=== PATIENT | female | born 1945 | race Caucasian/White ===

== ENCOUNTER 2019-12-26 07:48 | Emergency (ER) | payer OTHER ==
[~2019-12-26] VITALS: Ht 157.5 cm; Wt 75.3 kg
[~2019-12-26 07:48] MED LIST: ASPIR 8181 MG PO; ATENOLOL25 MG PO; BRILINTA90 MG PO; CENTRUM SILVER1 EAC3 PO; CHOLESTYRAMINE L4 GM PO; CHROMIUM PO; CINNAMON500 MG PO; CLONAZEPAM0.5 MG PO; CLONIDINE HCL0.1 MG PO; DEXTROSE; DOXEPIN HCL10 MG PO; ETODOLAC500 MG PO; FAMOTIDINE20 MG PO; GLIMEPIRIDE4 MG PO; HUMALOG100 UNITS/ SQ; HYDRALAZINE HCL10 MG PO; IRON325 M1 PO; L-LYSINE500 M1 PO; LANTUS 3ML100 UNITS/ SQ; LASIX20 MG PO; LEVOTHYROXINE75 MCG PO; LOSARTAN POTASS25 MG PO; LOVASTATIN20 MG PO; LOVASTATIN40 MG PO; MAGNESIUM OXID400 MG PO; MAGNESIUM OXIDE PO; METFORMIN HCL1000 MG PO; METFORMIN HCL500 MG PO; METOPROLOL PO; METOPROLOL TART25 MG PO; METOPROLOL TART50 MG PO; MONTELUKAST SOD10 MG PO; MORPHINE; NAPROSYN500 MG PO; NEURONTIN100 MG PO; NITROGLYCERIN; NORVASC5 MG PO; NOVOLIN 70100 UNITS/ SQ; NOVOLOG100 UNITS/ SQ; OMEGA 3 6 9 PO; PEPCID20 MG PO; PLAVIX75 MG PO; REGLAN10 MG PO; SUCRALFATE1 G/10 ML NG; SYNTHROID75 MCG PO; TIZANIDINE HCL2 MG PO; TRAZODONE HCL50 MG PO; ULTRAM 50MG50 MG PO; VIT D PO; VITAMIN B COMP1 EAC1 PO; VITAMIN D35000 UNI1 PO; WOMEN'S DAILY1 EAC1 PO; biotin PO
--- OUTSIDE RECORDS SUMMARY | 2019-12-26 07:52 | XMS REPORT ---
Author Author [facility] Address Unknown Phone Unavailable Care Team Providers Care Cad Drafter Name Role Phone Unavailable Unavailable Payers Payer Name Policy Type Policy Number Effective Date Expiration Date Problems This patient has no known problems. Allergies, Adverse Reactions, Alerts Allergy Name Allergy Type Status Severity Reaction(s) Onset Date Inactive Date Treating Clinician Comments morphine DA Active U 2019-11-30 00:00:00 Penicillins DA Active [place] 2018-06-02 00:00:00 peanut FA Active [place] 2018-06-02 00:00:00 potassium DA Active [place] 2018-06-02 00:00:00 codeine DA Active 2018-06-02 00:00:00 adhesive tape DA Active [place] 2018-06-02 00:00:00 meperidine DA Active [place] 2018-06-02 00:00:00 BRONCHODILATORS DA Active 2018-06-02 00:00:00 Medications This patient has no known medications. Results Test Description Test Time Test Comments Text Results Atomic Results Result Comments GLUBED 2019-12-01 12:01:00 GLUBED (test code=GLUBED) 223 mg/dL 74-106 Performed by certified ruffling machine operator at [facility] [id number] 06:54:00* Test Item Value Reference Range Comments GLUBED (test code=GLUBED) 224 mg/dL 74-106 Performed by certified ruffling machine operator at [facility] [id number] 04:52:00* Test Item Value Reference Range Comments TROPONIN-I (test code=TROPI) <0.015 ng/mL 0-0.045 COMMENTS TO NEWS LIBRARIAN: COLLECT 3 HOURS AFTER PREVIOUS [id number] 01:45:00* Test Item Value Reference Range Comments TROPONIN-I (test code=TROPI) <0.015 ng/mL 0-0.045 COMMENTS TO NEWS LIBRARIAN: COLLECT 3 HOURS AFTER PREVIOUS [id number] 20:14:00* Test Item Value Reference Range Comments GLUBED (test code=GLUBED) 175 mg/dL 74-106 Performed by certified ruffling machine operator at [facility] - XR CHEST 1 [id number] 18:56:00 FAX: Darin Rodriges MD [phone] [place]: St: [facility] FAX: Genna Pollard [phone] Name: LILI MAI [facility] : 1945 Age/S: 74/F [address] [facility] Unit #: [id number] Loc: [place] [address] Phys: Darin Rodriges MD Acct: [id number] Dis Date: Status: ADM IN PHONE #: [phone] Exam Date: 11/30/2019 1828 FAX #: [phone] Reason: CHEST PAIN EXAMS: CPT CODE: [id number] XR CHEST 1 V 69117 REASON FOR EXAM: CHEST PAIN EXAM ORDER DATE: 11/30/2019 4:46 PM Ordering: Darin Rodriges MD Attending:Blair Chavez MD Location: PROCEDURE: - XR CHEST 1 V COMPARISON: FINDINGS: Portable AP frontal view of the chest obtained at 6:25 PM shows clear lungs without evidence of consolidation. There is no evidence of effusion. The heart size is within normal limits. Pulmonary vasculatures are unremarkable. IMPRESSION: No active disease. at 1856 Reported and signed by: Mehdi Bustillos M.D. CC: Darin Rodriges MD; Genna Leavitt MD Technologist: SUGAR MAN(R) Trnscrd Date/Time/By: 11/30/2019 (1855) : By: GingerVTL Orig Print D/T: S: 11/30/2019 (1858) PAGE 1 Signed Report BASIC METABOLIC [id number] 17:31:00* Test Item Value Reference Range Comments SODIUM (test code=NA) 137 mmol/L 136-145 POTASSIUM (test code=K) 4.4 mmol/L 3.5-5.1 CHLORIDE (test code=CL) 103.0 mmol/L 98-107 CARBON DIOXIDE (test code=CO2) 24.0 mmol/L 21-32 ANION GAP (test code=GAP) 14.4 10-20 GLUCOSE (test code=GLU) 225 mg/dL 74-106 BLOOD UREA NITROGEN (test code=BUN) 18 mg/dL 7-18 GLOMERULAR FILTRATION RATE (test code=GFR) > 60 mL/min >=60 Estimated GFR by using Modified MDRD formula.Chronic kidney disease is defined as either kidney damageor GFR <60 mL/min/1.73 m2 for >3 months. CREATININE (test code=CREAT) 0.90 mg/dL 0.55-1.02 Note change in reference range due to change in reagent. BUN/CREATININE RATIO (test code=BUN/CREA) 20.0 10-20 CALCIUM (test code=CA) 10.2 mg/dL 8.5-10.1 [id number] 17:31:00* Test Item Value Reference Range Comments TROPONIN-I (test code=TROPI) <0.015 ng/mL 0-0.045 CBC W/O [id number] 17:21:00* Test Item Value Reference Range Comments WHITE BLOOD CELL (test code=WBC) 8.9 K/mm3 4.5-12.5 RED BLOOD CELL (test code=RBC) 4.66 mill/mm3 3.7-5.2 HEMOGLOBIN (test code=HGB) 12.9 gram/dL 11.5-15.5 HEMATOCRIT (test code=HCT) 38.6 % 36.0-46.0 MEAN CELL VOLUME (test code=MCV) 82.8 fL 80-98 MEAN CELL HGB (test code=MCH) 27.7 picogram 27.0-33.0 MEAN CELL HGB CONCETRATION (test code=MCHC) 33.4 gram/dL 33.0-36.0 RED CELL DISTRIBUTION WIDTH (test code=RDW) 14.0 % 11.6-16.2 PLATELET COUNT (test code=PLT) 302 K/mm3 150-450 MEAN PLATELET VOLUME (test code=MPV) 9.8 fL 6.7-11.0 BASIC METABOLIC [id number] 17:18:00* Test Item Value Reference Range Comments SODIUM (test code=NA) 137 mmol/L 136-145 POTASSIUM (test code=K) 4.4 mmol/L 3.5-5.1 CHLORIDE (test code=CL) 103.0 mmol/L 98-107 CARBON DIOXIDE (test code=CO2) mmol/L 21-32 ANION GAP (test code=GAP) 10-20 GLUCOSE (test code=GLU) mg/dL 74-106 BLOOD UREA NITROGEN (test code=BUN) mg/dL 7-18 GLOMERULAR FILTRATION RATE (test code=GFR) mL/min >=60 CREATININE (test code=CREAT) mg/dL 0.55-1.02 BUN/CREATININE RATIO (test code=BUN/CREA) 10-20 CALCIUM (test code=CA) mg/dL 8.5-10.1 [id number] 17:18:00* Test Item Value Reference Range Comments TROPONIN-I (test code=TROPI) ng/mL 0-0.045 CBC W/O [id number] 17:15:00* Test Item Value Reference Range Comments WHITE BLOOD CELL (test code=WBC) K/mm3 4.5-12.5 RED BLOOD CELL (test code=RBC) mill/mm3 3.7-5.2 HEMOGLOBIN (test code=HGB) 12.9 gram/dL 11.5-15.5 HEMATOCRIT (test code=HCT) 38.6 % 36.0-46.0 MEAN CELL VOLUME (test code=MCV) fL 80-98 MEAN CELL HGB (test code=MCH) picogram 27.0-33.0 MEAN CELL HGB CONCETRATION (test code=MCHC) gram/dL 33.0-36.0 RED CELL DISTRIBUTION WIDTH (test code=RDW) % 11.6-16.2 PLATELET COUNT (test code=PLT) K/mm3 150-450 MEAN PLATELET VOLUME (test code=MPV) fL 6.7-11.0
[2019-12-26] MEDS: HYDROCODONE/APAP 5MG-325MG TAB PO ONE (08:45)
--- NOTE | 2019-12-26 08:45 | Diagnostic Imaging Report ---
Exam: Tibia and ankle 3 views each History: Pain, fall Comparison: None. Findings: Total knee arthroplasty with intact components. No fracture or malalignment. Joint spaces preserved. Calcaneal enthesophytes. Impression: No acute osseous abnormality Signed by: Dr. Misael Huerta M.D. on 12/26/2019 8:42 AM
[2019-12-26 09:14] VITALS: BP 149/72
== END 2019-12-26 09:24 | disposition home or self-care (01) ==
LOC: ER 07:48
DX: S93.492A Sprain of other ligament of left ankle, initial encounter (principal); X50.1XXA Overexertion from prolonged static or awkward postures, initial encounter; Y92.008 Other place in unspecified non-institutional (private) residence as the place of occurrence of the external cause
CPT/HCPCS: 99284

== ENCOUNTER 2020-08-27 11:35 | Emergency (ER) | payer OTHER ==
[~2020-08-27] VITALS: Ht 157.5 cm; Wt 75.3 kg
== END 2020-08-27 14:14 | disposition home or self-care (01) ==
LOC: ER 12:03
DX: S00.83XA Contusion of other part of head, initial encounter (principal); S60.511A Abrasion of right hand, initial encounter; S50.811A Abrasion of right forearm, initial encounter; S80.211A Abrasion, right knee, initial encounter; W01.0XXA Fall on same level from slipping, tripping and stumbling without subsequent striking against object, initial encounter; Y93.01 Activity, walking, marching and hiking; Y92.480 Sidewalk as the place of occurrence of the external cause; I10 Essential (primary) hypertension; E11.9 Type 2 diabetes mellitus without complications; E03.9 Hypothyroidism, unspecified; I25.10 Atherosclerotic heart disease of native coronary artery without angina pectoris; I25.2 Old myocardial infarction; Z95.5 Presence of coronary angioplasty implant and graft; Z95.1 Presence of aortocoronary bypass graft; Z96.652 Presence of left artificial knee joint
CPT/HCPCS: 70450; 72125; 99283

== ENCOUNTER → 2020-11-24 | Outpatient (CLI) | payer OTHER ==
[~2020-11-24] MED LIST changes: +COVID-19 VACC, MRNA(MODERNA)/PF 100 MCG/0.5 ML VIAL IM ONE
== END ==
LOC: VACCPMC 17:30
DX: Z23 Encounter for immunization (principal); Z20.828 Contact with and (suspected) exposure to other viral communicable diseases

== ENCOUNTER → 2020-12-27 | Outpatient (CLI) | payer OTHER | END | DRG 951 | LOC: VACCPMC 09:13 | DX: Z23 Encounter for immunization (principal); Z20.822 Contact with and (suspected) exposure to COVID-19 | CPT/HCPCS: 0012A; 91301 ==

== ENCOUNTER 2021-04-17 16:04 | Observation (INO) | payer OTHER ==
[~2021-04-17] VITALS: Ht 157.5 cm; Wt 75.3 kg
[~2021-04-17 16:04] MED LIST changes: -COVID-19 VACC, MRNA(MODERNA)/PF 100 MCG/0.5 ML VIAL IM ONE
[2021-04-17] MEDS ORDERED: ASPIRIN 81 MG CHEW TAB PO STA (16:50)
[2021-04-17] MEDS ORDERED: ASPIRIN 81 MG CHEW TAB PO ONE ×2 (17:00→20:30)
[2021-04-17 17:18] LABS: BASOPHILS % 0.5 % (0.0-1.0); EOSINOPHILS # (AUTO) 0.2 (0.0-0.4); HEMATOCRIT 34.9 % (34.2-44.1); HEMOGLOBIN 11.6 g/dL (12.0-16.0); LYMPHOCYTES # (AUTO) 2.7 (1.0-3.2); LYMPHOCYTES % 31.9 % (18.0-39.1); MEAN CORPUSCULAR HEMOGLOBIN 29.4 pg (28-32); MEAN CORPUSCULAR HGB CONC 33.2 g/dL (31-35); MEAN CORPUSCULAR VOLUME 88.4 fL (81-99); MONOCYTES # (AUTO) 0.8 (0.2-0.8); MONOCYTES % 9.2 % (4.4-11.3); NEUTROPHILS # (AUTO) 4.8 (2.1-6.9); NEUTROPHILS % 55.8 % (38.7-80.0); PLATELET COUNT 399 x10e3/uL (140-360); RED BLOOD COUNT 3.95 x10e6/uL (3.6-5.1)
[2021-04-17 17:24] LABS: INR 0.82; PARTIAL THROMBOPLASTIN TIME 23.9 seconds (23.8-35.5); PROTHROMBIN TIME 11.9 seconds (11.9-14.5)
[2021-04-17 17:31] LABS: CLARITY,URINE CLEAR (CLEAR); COLOR,URINE YELLOW (YELLOW); KETONES,URINE NEGATIVE (NEGATIVE); LEUKOCYTE ESTERASE ,URINE NEGATIVE (NEGATIVE); NITRITE,URINE NEGATIVE (NEGATIVE); PROTEIN,URINE DIPSTICK NEGATIVE (NEGATIVE); URINE UROBILINOGEN 0.2 mg/dL (0.2 - 1)
[2021-04-17 17:33] LABS: ALANINE AMINOTRANSFERASE 12 IU/L (0-55); ALBUMIN 3.6 g/dL (3.5-5.0); ALBUMIN/GLOBULIN RATIO 0.9 (0.8-2.0); ALKALINE PHOSPHATASE 97 IU/L (40-150); ANION GAP 17.7 mmol/L (8-16); BLOOD UREA NITROGEN 14 mg/dL (7-26); BUN/CREATININE RATIO 16 (6-25); CALCIUM 10.4 mg/dL (8.4-10.2); CARBON DIOXIDE 21 mmol/L (22-29); CHLORIDE 104 mmol/L (98-107); CREATINE KINASE 48 IU/L (29-168); CREATININE, SERUM 0.85 mg/dL (0.57-1.11); EST GLOMERULAR FILTRATION RATE > 60 ML/MIN (60-); GLUCOSE 104 mg/dL (74-118); POTASSIUM 3.7 mmol/L (3.5-5.1); SODIUM 139 mmol/L (136-145)
[2021-04-17] MEDS ORDERED: DIPHENHYDRAMINE HCL INJ 50 MG/ML VIAL IV ONE (18:15)
[2021-04-17] MEDS ORDERED: IOPAMIDOL 370 MG/ML 200 ML INFUS..BTL INJ ONE (18:17)
[2021-04-17] MEDS ORDERED: SODIUM CHLORIDE 0.9% 50ML 50 ML ONE (18:17)
[2021-04-17] MEDS: MORPHINE SULFATE INJ 4 MG/ML INJ 1ML IV PRN (18:50)
[2021-04-18] MEDS: MORPHINE SULFATE INJ 4 MG/ML INJ 1ML IV PRN (02:53)
[2021-04-18] MEDS ORDERED: TRAMADOL HCL 50 MG TAB PO ONE (03:00)
[2021-04-18 07:15] LABS: CREATINE KINASE 31 IU/L (29-168)
[2021-04-18 07:39] LABS: CHOL/HDL RATIO 2.9 (3.0-3.6)
[2021-04-18] MEDS ORDERED: BIOTIN 1000 MCG PO SCH (09:00)
[2021-04-18] MEDS ORDERED: LYCOPENE PO SCH (09:00)
[2021-04-18] MEDS ORDERED: (Cinnamon Bark (Cinnamon) 1,000 MG) PO SCH (09:00)
[2021-04-18] MEDS ORDERED: MU VITS MIN TH PO SCH (09:00)
[2021-04-18] MEDS ORDERED: METOPROLOL TARTRATE 25 MG TAB PO SCH (09:00)
[2021-04-18] MEDS ORDERED: LOSARTAN POTASSIUM 25 MG TAB PO SCH ×2 (09:00→21:00)
[2021-04-18] MEDS ORDERED: LYSINE 500 MG PO SCH (09:00)
[2021-04-18] MEDS ORDERED: VITAMIN B COMPLEX PO SCH (09:00)
[2021-04-18] MEDS ORDERED: NON-FORMULARY MEDICATION (Cholecalciferol (Vitamin D3) (Vitamin D3) 5,000 UNITS) PO SCH (09:00)
[2021-04-18] MEDS ORDERED: FUROSEMIDE 20 MG TAB PO SCH (09:00)
[2021-04-18] MEDS ORDERED: METFORMIN HCL 500 MG TAB PO SCH (09:00)
[2021-04-18] MEDS ORDERED: LUTEIN PO SCH (09:00)
[2021-04-18] MEDS ORDERED: GABAPENTIN 100 MG CAP PO SCH (09:00)
[2021-04-18] MEDS ORDERED: OMEGA PO SCH (09:00)
[2021-04-18] MEDS ORDERED: MAGNESIUM OXIDE 250 MG PO SCH (09:00)
[2021-04-18] MEDS ORDERED: FAMOTIDINE 20 MG TAB PO SCH (09:00)
[2021-04-18] MEDS ORDERED: CHROMIUM 1000 MCG PO SCH (09:00)
[2021-04-18] MEDS ORDERED: LEVOFLOXACIN 500 MG TAB PO SCH (09:30)
[2021-04-18] MEDS ORDERED: METRONIDAZOLE 500 MG TAB PO SCH (09:30)
[2021-04-18] MEDS ORDERED: LEVOTHYROXINE SODIUM 75 MCG TAB PO SCH (11:30)
[2021-04-18] MEDS ORDERED: CHOLECALCIFEROL 1,000 UNIT TAB PO SCH (12:00)
[2021-04-18] MEDS ORDERED: OMEGA 3 POLYUNSAT FATTY ACIDS 1000 MG SOFTGEL PO SCH (17:00)
[2021-04-18] MEDS ORDERED: TICAGRELOR 90 MG TABLET PO SCH (21:00)
[2021-04-18] MEDS ORDERED: SIMVASTATIN 40 MG TAB PO SCH (21:00)
[2021-04-19] MEDS ORDERED: MAGNESIUM OXIDE 400 MG TAB PO SCH (09:00)
== END 2021-04-18 12:20 | disposition home or self-care (01) ==
LOC: ER 17:35 → ERHOLD 20:55
PROVIDERS: ADMIT Internal Medicine; ATTEND Internal Medicine
DX: K57.32 Diverticulitis of large intestine without perforation or abscess without bleeding (principal); R07.9 Chest pain, unspecified; I10 Essential (primary) hypertension; E11.9 Type 2 diabetes mellitus without complications; I25.2 Old myocardial infarction; E03.9 Hypothyroidism, unspecified; I25.10 Atherosclerotic heart disease of native coronary artery without angina pectoris; Z95.5 Presence of coronary angioplasty implant and graft; Z95.1 Presence of aortocoronary bypass graft; Z96.652 Presence of left artificial knee joint; Z88.5 Allergy status to narcotic agent; Z88.0 Allergy status to penicillin; Z88.8 Allergy status to other drugs, medicaments and biological substances; Z20.822 Contact with and (suspected) exposure to COVID-19; Z79.84 Long term (current) use of oral hypoglycemic drugs
CPT/HCPCS: 36415 ×2; 71045; 74177; 80053; 80061; 81001; 82550 ×2; 82553 ×2; 82948; 83880; 84484 ×2; 85025; 85610; 85730; 93005; 93926; 99284; G0378 ×2; J1200; J2270; Q9967; U0002

== ENCOUNTER 2021-09-08 04:54 | Emergency (ER) | payer OTHER ==
[~2021-09-08] VITALS: Ht 157.5 cm; Wt 75.3 kg
[2021-09-08] MEDS ORDERED: ACETAMINOPHEN 325 MG TAB PO ONE (05:15)
[2021-09-08] MEDS ORDERED: ACETAMINOPHEN 325 MG TAB ONE (05:23)
== END 2021-09-08 06:21 | disposition home or self-care (01) ==
LOC: ER 05:06
DX: S60.212A Contusion of left wrist, initial encounter (principal); M25.512 Pain in left shoulder; M13.832 Other specified arthritis, left wrist; W06.XXXA Fall from bed, initial encounter; Y93.84 Activity, sleeping; Y92.003 Bedroom of unspecified non-institutional (private) residence as the place of occurrence of the external cause; I10 Essential (primary) hypertension; E11.9 Type 2 diabetes mellitus without complications; E03.9 Hypothyroidism, unspecified; I25.10 Atherosclerotic heart disease of native coronary artery without angina pectoris; Z95.1 Presence of aortocoronary bypass graft; Z95.5 Presence of coronary angioplasty implant and graft
CPT/HCPCS: 99283

== ENCOUNTER 2023-12-31 12:46 | Emergency (ER) | payer OTHER ==
[~2023-12-31] VITALS: Ht 157.5 cm; Wt 60.8 kg
[~2023-12-31 12:46] MED LIST changes: +ALLOPURINOL100 MG PO; +BUSPIRONE HCL10 MG PO; +CLOPIDOGREL75 MG PO; +IMODIUM A-1 MG/7.5 M PO; +ISOSORBIDE MONO30 MG PO; +NIFEDIPINE ER30 M1 PO; +ONDANSETRON ODT4 MG PO
[2023-12-31 14:17] LABS: BASOPHILS % 0.4 % (0.0-1.0); EOSINOPHILS # (AUTO) 0.1 (0.0-0.4); EOSINOPHILS % 1.6 % (0.0-6.0); HEMATOCRIT 40.5 % (34.2-44.1); HEMOGLOBIN 13.2 g/dL (12.0-16.0); LYMPHOCYTES # (AUTO) 2.2 (1.0-3.2); LYMPHOCYTES % 31.9 % (18.0-39.1); MEAN CORPUSCULAR HEMOGLOBIN 29.2 pg (28-32); MEAN CORPUSCULAR HGB CONC 32.6 g/dL (31-35); MEAN CORPUSCULAR VOLUME 89.6 fL (81-99); MONOCYTES # (AUTO) 0.5 (0.2-0.8); MONOCYTES % 7.3 % (4.4-11.3); NEUTROPHILS % 58.5 % (38.7-80.0); PLATELET COUNT 178 x10e3/uL (140-360); RED BLOOD COUNT 4.52 x10e6/uL (3.6-5.1); RED CELL DISTRIBUTION WIDTH 15.6 % (11.7-14.4); WHITE BLOOD COUNT 6.84 x10e3/uL (4.8-10.8)
[2023-12-31 14:34] LABS: ALANINE AMINOTRANSFERASE 16 IU/L (0-55); ALBUMIN 4.1 g/dL (3.5-5.0); ALBUMIN/GLOBULIN RATIO 1.2 (0.8-2.0); ALKALINE PHOSPHATASE 61 IU/L (40-150); ANION GAP 16.2 mmol/L (8-16); BILIRUBIN,TOTAL 0.3 mg/dL (0.2-1.2); BLOOD UREA NITROGEN 10 mg/dL (7-26); BUN/CREATININE RATIO 10 (6-25); CALCIUM 9.9 mg/dL (8.4-10.2); CARBON DIOXIDE 26 mmol/L (22-29); CHLORIDE 99 mmol/L (98-107); CREATINE KINASE 79 IU/L (29-168); CREATININE, SERUM 0.97 mg/dL (0.57-1.11); EST GLOMERULAR FILTRATION RATE 59 ML/MIN (>=60); GLUCOSE 173 mg/dL (74-118); POTASSIUM 4.2 mmol/L (3.5-5.1); SODIUM 137 mmol/L (136-145); TOTAL PROTEIN 7.4 g/dL (6.5-8.1)
[2023-12-31 14:43] LABS: TROPONIN I < 0.001 ng/mL (0-0.300)
[2023-12-31 15:34] LABS: BILIRUBIN,URINE NEGATIVE (NEGATIVE); CLARITY,URINE CLEAR (CLEAR); COLOR,URINE YELLOW (YELLOW); GLUCOSE, URINE NEGATIVE (NEGATIVE); KETONES,URINE NEGATIVE (NEGATIVE); LEUKOCYTE ESTERASE ,URINE NEGATIVE (NEGATIVE); NITRITE,URINE NEGATIVE (NEGATIVE); PH,URINE 6.5 (5 - 7); PROTEIN,URINE DIPSTICK NEGATIVE (NEGATIVE); URINE UROBILINOGEN 0.2 mg/dL (0.2 - 1)
[2023-12-31 15:44] LABS: RBC,URINE 0-5 /HPF (0-5)
[2023-12-31 15:45] LABS: EPITHELIAL CELLS,URINE RARE /LPF
[2023-12-31] MEDS ORDERED: SODIUM CHLORIDE 0.9% 100 ML ONE (16:51)
[2023-12-31] MEDS ORDERED: IOPAMIDOL 370 MG/ML 100 ML INFUS..BTL INJ ONE (16:52)
[2023-12-31] MEDS ORDERED: MECLIZINE HCL25 MG PO (16:56)
[2023-12-31 17:04] VITALS: BP 137/82; PULSE 80; RESP 17; TEMP 98; O2SAT 99
== END 2023-12-31 17:19 | disposition home or self-care (01) ==
LOC: ER 12:58
DX: R42 Dizziness and giddiness (principal); I65.22 Occlusion and stenosis of left carotid artery; E11.65 Type 2 diabetes mellitus with hyperglycemia; I10 Essential (primary) hypertension; I25.10 Atherosclerotic heart disease of native coronary artery without angina pectoris; K21.9 Gastro-esophageal reflux disease without esophagitis; M54.9 Dorsalgia, unspecified; G89.29 Other chronic pain; Z11.52 Encounter for screening for COVID-19; R94.31 Abnormal electrocardiogram [ECG] [EKG]; Z86.73 Personal history of transient ischemic attack (TIA), and cerebral infarction without residual deficits; Z95.1 Presence of aortocoronary bypass graft; Z95.5 Presence of coronary angioplasty implant and graft; Z96.652 Presence of left artificial knee joint
CPT/HCPCS: 36415; 70496; 70498; 71045; 80053; 81001; 82550; 82948; 84484; 85025; 93005; 99284; J7050; Q9967; U0002

== ENCOUNTER → 2024-08-17 | Day surgery (SDC) | payer OTHER ==
[2024-08-14 11:19] LABS: BASOPHILS % 0.6 % (0.0-1.0); EOSINOPHILS # (AUTO) 0.1 (0.0-0.4); EOSINOPHILS % 2.2 % (0.0-6.0); HEMATOCRIT 36.4 % (34.2-44.1); HEMOGLOBIN 11.7 g/dL (12.0-16.0); LYMPHOCYTES # (AUTO) 1.7 (1.0-3.2); LYMPHOCYTES % 34.7 % (18.0-39.1); MEAN CORPUSCULAR HEMOGLOBIN 28.3 pg (28-32); MEAN CORPUSCULAR HGB CONC 32.1 g/dL (31-35); MEAN CORPUSCULAR VOLUME 88.1 fL (81-99); MONOCYTES # (AUTO) 0.5 (0.2-0.8); MONOCYTES % 9.3 % (4.4-11.3); NEUTROPHILS # (AUTO) 2.6 (2.1-6.9); PLATELET COUNT 157 x10e3/uL (140-360); RED BLOOD COUNT 4.13 x10e6/uL (3.6-5.1); RED CELL DISTRIBUTION WIDTH 17.1 % (11.7-14.4); WHITE BLOOD COUNT 4.95 x10e3/uL (4.8-10.8)
[2024-08-14 11:47] LABS: ANION GAP 15.8 mmol/L (8-16); CALCIUM 9.9 mg/dL (8.4-10.2); CREATININE, SERUM 0.9 mg/dL (0.57-1.11); POTASSIUM 3.8 mmol/L (3.5-5.1)
[~2024-08-17] MED LIST changes: +ACETAMINOPHEN 1000 MG/100 ML IV PRN; +ASPIRIN 325 MG TAB PO SCH; +BUPIVACAINE LIPOSOME/PF 266 MG/20 ML IJ ONE; +CELECOXIB 100 MG CAP PO SCH; +DEXAMETHASONE SOD PHOS 10 MG/1 ML VIAL ONE; +DIPHENHYDRAMINE HCL INJ 50 MG/ML VIAL IV PRN; +DOCUSATE SODIUM 100 MG CAP PO PRN; +EPHEDRINE SULFATE INJ 50 MG/ML VIAL ONE; +EPINEPHRINE HCL 1:1000 1ML 1 MG/ML AMP ONE; +ESMOLOL HCL 100MG/10ML 10 MG/ML VIAL ONE; +FENTANYL CITRATE/PF 100MCG/2 ML INJ ONE; +GINKGO BILOBA125 MG PO; +GLYCOPYRROLATE INJ 0.2 MG/ML VIAL ONE; +HYDROCODONE/APAP 5MG-325MG TAB PO PRN; +HYDROCODONE/APAP 7.5MG-325MG 1 EA TAB PO PRN; +LIDOCAINE HCL 2% LOCAL INJ 5 ML SDV VIAL INJ ONE; +LIPO-FLAVONOID1 EACH PO; +MECLIZINE HCL25 MG PO; +MIDAZOLAM HCL 2 MG/2 ML VIAL ONE; +ONDANSETRON HCL INJ 2MG/ML 2ML 2 MG/ML VIAL IV PRN; +ONDANSETRON HCL INJ 2MG/ML 2ML 2 MG/ML VIAL ONE; +PHENYLEPHRINE HCL 1% 10 MG/ML VIAL ONE; +PROPOFOL IV EMULSION 10 MG/ML 20 ML VIAL ONE; +ROPIVACAINE 0.5% 5 MG/ML 30 ML SDV ONE; +ROPIVACAINE 246.25 MG, EPINEPHRINE HCL 1:1000 1ML 0.5 MG, CLONIDINE HCL 0.08 MG, KETORO... INJ ONE; +SEVOFLURANE INHAL SOLN 250 ML PEN BTL ONE; +SODIUM CHLORIDE 0.9% 1000ML 1,000 ML IV SCH; +SODIUM CHLORIDE 0.9% 500ML 500 ML ONE; +TRANEXAMIC ACID 20 ML ONE; +Vancomycin IV 500 MG ONE
[2024-08-17] MEDS: CEFAZOLIN SODIUM 2 GM ONE (07:14)
[2024-08-17] MEDS: GABAPENTIN 300 MG CAP ONE (07:15)
[2024-08-17] MEDS: CELECOXIB 200 MG CAP ONE (07:16)
[2024-08-17] MEDS: LACTATED RINGER'S 1,000 ML ONE (07:16)
[2024-08-17 09:49] VITALS: TEMP 97.2
[2024-08-17 15:30] VITALS: BP 178/82; PULSE 89; RESP 16; O2SAT 97
== END | disposition home health service (06) ==
LOC: OR 06:40
PROVIDERS: ATTEND Specialist
DX: M17.11 Unilateral primary osteoarthritis, right knee (principal); M25.761 Osteophyte, right knee; M06.9 Rheumatoid arthritis, unspecified; D64.9 Anemia, unspecified; E11.9 Type 2 diabetes mellitus without complications; I10 Essential (primary) hypertension; E03.9 Hypothyroidism, unspecified; E78.5 Hyperlipidemia, unspecified; I25.10 Atherosclerotic heart disease of native coronary artery without angina pectoris; I25.2 Old myocardial infarction; G89.29 Other chronic pain; F32.A Depression, unspecified; Z88.6 Allergy status to analgesic agent; Z88.8 Allergy status to other drugs, medicaments and biological substances; Z91.010 Allergy to peanuts; Z91.048 Other nonmedicinal substance allergy status; Z01.812 Encounter for preprocedural laboratory examination; Z79.82 Long term (current) use of aspirin; Z79.02 Long term (current) use of antithrombotics/antiplatelets; Z79.84 Long term (current) use of oral hypoglycemic drugs; Z79.899 Other long term (current) drug therapy; Z95.5 Presence of coronary angioplasty implant and graft
CPT/HCPCS: 27447; 36415; 71046; 73560; 80048; 85025; 86850; 86900; 97116; 97161; 97530; C1713 ×2; C1776 ×3; J0171; J0690; J1100; J1885; J2001; J2250; J2371; J2405; J2704; J2795; J3010; J3370; J7040; J7121

== ENCOUNTER 2024-08-23 12:44 | Inpatient (IN) | payer MEDICARE, OTHER ==
[~2024-08-23] VITALS: Ht 154.9 cm; Wt 59.0 kg
[~2024-08-23 12:44] MED LIST changes: -ACETAMINOPHEN 1000 MG/100 ML IV PRN; -ASPIRIN 325 MG TAB PO SCH; -BUPIVACAINE LIPOSOME/PF 266 MG/20 ML IJ ONE; -CELECOXIB 100 MG CAP PO SCH; -DEXAMETHASONE SOD PHOS 10 MG/1 ML VIAL ONE; -DIPHENHYDRAMINE HCL INJ 50 MG/ML VIAL IV PRN; -DOCUSATE SODIUM 100 MG CAP PO PRN; -EPHEDRINE SULFATE INJ 50 MG/ML VIAL ONE; -EPINEPHRINE HCL 1:1000 1ML 1 MG/ML AMP ONE; -ESMOLOL HCL 100MG/10ML 10 MG/ML VIAL ONE; -FENTANYL CITRATE/PF 100MCG/2 ML INJ ONE; -GLYCOPYRROLATE INJ 0.2 MG/ML VIAL ONE; -HYDROCODONE/APAP 5MG-325MG TAB PO PRN; -HYDROCODONE/APAP 7.5MG-325MG 1 EA TAB PO PRN; -LIDOCAINE HCL 2% LOCAL INJ 5 ML SDV VIAL INJ ONE; -MIDAZOLAM HCL 2 MG/2 ML VIAL ONE; -ONDANSETRON HCL INJ 2MG/ML 2ML 2 MG/ML VIAL IV PRN; -ONDANSETRON HCL INJ 2MG/ML 2ML 2 MG/ML VIAL ONE; -PHENYLEPHRINE HCL 1% 10 MG/ML VIAL ONE; -PROPOFOL IV EMULSION 10 MG/ML 20 ML VIAL ONE; -ROPIVACAINE 0.5% 5 MG/ML 30 ML SDV ONE; -ROPIVACAINE 246.25 MG, EPINEPHRINE HCL 1:1000 1ML 0.5 MG, CLONIDINE HCL 0.08 MG, KETORO... INJ ONE; -SEVOFLURANE INHAL SOLN 250 ML PEN BTL ONE; -SODIUM CHLORIDE 0.9% 1000ML 1,000 ML IV SCH; -SODIUM CHLORIDE 0.9% 500ML 500 ML ONE; -TRANEXAMIC ACID 20 ML ONE; -Vancomycin IV 500 MG ONE
[2024-08-23 12:50] VITALS: TEMP 99.3
[2024-08-23] MEDS ORDERED: CEFTRIAXONE 1 GM VIAL IV SCH (13:00)
[2024-08-23 14:30] LABS: BASOPHILS % 0.2 % (0.0-1.0); EOSINOPHILS # (AUTO) 0.2 (0.0-0.4); EOSINOPHILS % 2.4 % (0.0-6.0); HEMATOCRIT 36.3 % (34.2-44.1); HEMOGLOBIN 11.8 g/dL (12.0-16.0); LYMPHOCYTES # (AUTO) 1.6 (1.0-3.2); LYMPHOCYTES % 18.1 % (18.0-39.1); MEAN CORPUSCULAR HGB CONC 32.5 g/dL (31-35); MEAN CORPUSCULAR VOLUME 89.2 fL (81-99); MONOCYTES # (AUTO) 0.9 (0.2-0.8); MONOCYTES % 9.8 % (4.4-11.3); NEUTROPHILS # (AUTO) 6.1 (2.1-6.9); NEUTROPHILS % 69.2 % (38.7-80.0); PLATELET COUNT 168 x10e3/uL (140-360); RED BLOOD COUNT 4.07 x10e6/uL (3.6-5.1); WHITE BLOOD COUNT 8.75 x10e3/uL (4.8-10.8)
[2024-08-23 14:46] LABS: ALBUMIN 3.4 g/dL (3.5-5.0); ALBUMIN/GLOBULIN RATIO 0.8 (0.8-2.0); BILIRUBIN,TOTAL 0.6 mg/dL (0.2-1.2); CALCIUM 10.9 mg/dL (8.4-10.2); CREATININE, SERUM 1.03 mg/dL (0.57-1.11); TOTAL PROTEIN 7.6 g/dL (6.5-8.1)
[2024-08-23] MEDS: CEFEPIME 2 GM in SODIUM CHLORIDE 0.9% 100 ML IV ONE (14:55)
[2024-08-23 14:57] VITALS: PULSE 106; RESP 15
[2024-08-23] MEDS: SODIUM CHLORIDE 0.9% 1000ML 1,000 ML IV ONE (14:57)
[2024-08-23] MEDS ORDERED: SODIUM CHLORIDE FLUSH 10 ML SYR INJ PRN (15:45)
[2024-08-23] MEDS ORDERED: ONDANSETRON HCL INJ 2MG/ML 2ML 2 MG/ML VIAL IV PRN (15:45)
[2024-08-23] MEDS: Vancomycin IV 1 GM in SODIUM CHLORIDE 0.9% 250ML 250 ML IV SCH (16:04)
[2024-08-23 19:20] VITALS: BP 183/85; PULSE 64; RESP 18; TEMP 98.3; O2SAT 94
[2024-08-23] MEDS: NIFEDIPINE 10 MG CAP PO STA (19:47)
[2024-08-23 20:00] VITALS: BP_SYST 106; BP_SYST 174; BP_DIAS 71; BP_DIAS 84; PULSE 100; PULSE 53; RESP 16; RESP 17; TEMP 98.1; TEMP 98.4; O2SAT 97
[2024-08-23] MEDS: TRAZODONE HCL 50 MG TAB PO SCH (22:57)
[2024-08-23] MEDS: TRAMADOL HCL 50 MG TAB PO PRN (23:00)
[2024-08-24] VITALS: BP 146/66; PULSE 96; RESP 17; TEMP 98.3; O2SAT 93
[2024-08-24 04:00] VITALS: BP 144/81; PULSE 93; RESP 17; TEMP 98.2; O2SAT 95
[2024-08-24] MEDS: LEVOTHYROXINE SODIUM 50 MCG TAB PO SCH (05:31)
[2024-08-24 05:46] LABS: BASOPHILS % 0.7 % (0.0-1.0); EOSINOPHILS # (AUTO) 0.4 (0.0-0.4); EOSINOPHILS % 6.5 % (0.0-6.0); HEMATOCRIT 33.5 % (34.2-44.1); HEMOGLOBIN 10.9 g/dL (12.0-16.0); LYMPHOCYTES # (AUTO) 1.7 (1.0-3.2); LYMPHOCYTES % 27.6 % (18.0-39.1); MEAN CORPUSCULAR HEMOGLOBIN 28.7 pg (28-32); MEAN CORPUSCULAR HGB CONC 32.5 g/dL (31-35); MEAN CORPUSCULAR VOLUME 88.2 fL (81-99); MONOCYTES # (AUTO) 0.7 (0.2-0.8); MONOCYTES % 11.3 % (4.4-11.3); NEUTROPHILS # (AUTO) 3.2 (2.1-6.9); NEUTROPHILS % 53.7 % (38.7-80.0); PLATELET COUNT 145 x10e3/uL (140-360); RED CELL DISTRIBUTION WIDTH 16.3 % (11.7-14.4); WHITE BLOOD COUNT 6.02 x10e3/uL (4.8-10.8)
[2024-08-24 06:16] LABS: ALBUMIN 2.9 g/dL (3.5-5.0); ALBUMIN/GLOBULIN RATIO 0.9 (0.8-2.0); ANION GAP 11.7 mmol/L (8-16); BILIRUBIN,TOTAL 0.6 mg/dL (0.2-1.2); CALCIUM 9.5 mg/dL (8.4-10.2); CREATININE, SERUM 0.77 mg/dL (0.57-1.11); POTASSIUM 3.7 mmol/L (3.5-5.1); TOTAL PROTEIN 6.2 g/dL (6.5-8.1)
[2024-08-24 08:39] VITALS: BP 155/70; PULSE 80; RESP 18; TEMP 98.2; O2SAT 96
[2024-08-24 08:41] VITALS: BP 117/43; PULSE 70; RESP 20; TEMP 98.9; O2SAT 99
[2024-08-24] MEDS: CHROMIUM 1000 MCG PO SCH (09:00)
[2024-08-24] MEDS: GINKGO BILOBA LEAF EXTRACT PO SCH (09:00)
[2024-08-24] MEDS: [UNRECOGNIZED DRUG - OTHER] PO SCH (09:00)
[2024-08-24] MEDS ORDERED: [UNRECOGNIZED DRUG - OTHER] PO SCH (09:00)
[2024-08-24] MEDS ORDERED: CLOPIDOGREL BISULFATE 75 MG TAB PO SCH (09:00)
[2024-08-24] MEDS: Vitamin B Complex 1 TAB PO SCH (09:00)
[2024-08-24] MEDS: BUSPIRONE HCL 10 MG TABLET PO SCH (09:01)
[2024-08-24] MEDS: ISOSORBIDE MONONITRATE 30 MG TAB CR PO SCH (09:01)
[2024-08-24] MEDS: METFORMIN HCL 500 MG TAB PO SCH (09:01)
[2024-08-24] MEDS: MULTIVITAMINS/MINERALS TAB PO SCH (09:02)
[2024-08-24] MEDS: NIFEDIPINE CR 30 MG TAB PO SCH ×2 (09:02→17:00)
[2024-08-24] MEDS: ALLOPURINOL 100 MG TAB PO SCH (09:02)
[2024-08-24] MEDS: CHOLECALCIFEROL 1,000 UNIT TAB PO SCH (09:02)
[2024-08-24] MEDS: SIMVASTATIN 40 MG TAB PO SCH (09:02)
[2024-08-24] MEDS: FUROSEMIDE 20 MG TAB PO SCH (09:03)
[2024-08-24] MEDS ORDERED: DEXTROSE 50% SYRINGE 50 ML IV PRN (10:15)
[2024-08-24] MEDS ORDERED: IOPAMIDOL 370 MG/ML 100 ML INFUS..BTL INJ ONE (11:17)
[2024-08-24 12:46] VITALS: BP 162/90; PULSE 84; RESP 17; TEMP 97.9; O2SAT 99
[2024-08-24] MEDS: CLOPIDOGREL BISULFATE 75 MG TAB ONE (13:03)
[2024-08-24] MEDS: INSULIN LISPRO 100 UNIT/1 ML 3ML VIAL SQ SCH (13:12)
[2024-08-24] MEDS: ENOXAPARIN SOD INJ 40 MG/0.4 ML SYR SC SCH (17:00)
[2024-08-24 18:23] LABS: BILIRUBIN,URINE NEGATIVE (NEGATIVE); CLARITY,URINE CLEAR (CLEAR); COLOR,URINE YELLOW (YELLOW); GLUCOSE, URINE NEGATIVE (NEGATIVE); KETONES,URINE NEGATIVE (NEGATIVE); LEUKOCYTE ESTERASE ,URINE NEGATIVE (NEGATIVE); NITRITE,URINE NEGATIVE (NEGATIVE); PH,URINE 6 (5 - 7); PROTEIN,URINE DIPSTICK NEGATIVE (NEGATIVE); URINE UROBILINOGEN 0.2 mg/dL (0.2 - 1)
[2024-08-24 18:24] LABS: BACTERIA,URINE RARE /HPF; EPITHELIAL CELLS,URINE FEW /LPF
[2024-08-24 20:00] VITALS: BP 139/79; PULSE 105; RESP 17; TEMP 98.2; O2SAT 97
[2024-08-24] MEDS: GABAPENTIN 300 MG CAP PO SCH (20:53)
[2024-08-24] MEDS: LOSARTAN POTASSIUM 25 MG TAB PO SCH (20:59)
[2024-08-25] VITALS (10 sets, daily range): BP systolic 118–143; BP diastolic 58–79; PULSE 62–96; RESP 16–20; TEMP 97.3–98.7; O2SAT 95–99
[2024-08-25] MEDS: BALSAM PERU/CASTOR OIL 60 GM OINT...G. TP SCH (08:44)
[2024-08-25] MEDS: HYDROXYZINE HCL 10 MG TAB PO PRN (20:41)
[2024-08-25] MEDS ORDERED: HYDROMORPHONE HCL 2 MG TAB PO PRN (22:45)
[2024-08-26 04:00] VITALS: BP 139/84; PULSE 100; RESP 17; TEMP 98.1; O2SAT 94
[2024-08-26 05:19] LABS: BASOPHILS % 0.5 % (0.0-1.0); EOSINOPHILS # (AUTO) 0.3 (0.0-0.4); EOSINOPHILS % 4.7 % (0.0-6.0); HEMATOCRIT 35.8 % (34.2-44.1); HEMOGLOBIN 11.5 g/dL (12.0-16.0); LYMPHOCYTES # (AUTO) 2.1 (1.0-3.2); LYMPHOCYTES % 34.5 % (18.0-39.1); MEAN CORPUSCULAR HEMOGLOBIN 28.5 pg (28-32); MEAN CORPUSCULAR HGB CONC 32.1 g/dL (31-35); MEAN CORPUSCULAR VOLUME 88.6 fL (81-99); MONOCYTES # (AUTO) 0.8 (0.2-0.8); MONOCYTES % 13.5 % (4.4-11.3); NEUTROPHILS # (AUTO) 2.8 (2.1-6.9); NEUTROPHILS % 46.3 % (38.7-80.0); PLATELET COUNT 182 x10e3/uL (140-360); RED BLOOD COUNT 4.04 x10e6/uL (3.6-5.1); WHITE BLOOD COUNT 5.94 x10e3/uL (4.8-10.8)
[2024-08-26 05:41] LABS: ANION GAP 14.6 mmol/L (8-16); CALCIUM 9.5 mg/dL (8.4-10.2); CREATININE, SERUM 0.79 mg/dL (0.57-1.11); POTASSIUM 3.6 mmol/L (3.5-5.1)
[2024-08-26 08:57] VITALS: BP 139/84; PULSE 100; RESP 17; TEMP 98.1; O2SAT 94
[2024-08-26 09:24] VITALS: BP_SYST 153; BP_SYST 155; BP_DIAS 79; BP_DIAS 83; PULSE 85; PULSE 95; RESP 18; RESP 20; TEMP 98.1; TEMP 98.4; O2SAT 97; O2SAT 98
[2024-08-26 12:41] VITALS: BP 136/78; PULSE 86; RESP 18; TEMP 98; O2SAT 97
[2024-08-26 17:16] VITALS: BP 139/87; PULSE 93; RESP 18; TEMP 97.9; O2SAT 98
[2024-08-26 20:00] VITALS: BP 139/89; PULSE 98; RESP 20; TEMP 98.6; O2SAT 97
[2024-08-27] VITALS (7 sets, daily range): BP systolic 126–154; BP diastolic 69–90; PULSE 84–98; RESP 16–20; TEMP 97.7–98.5; O2SAT 93–100
[2024-08-28] VITALS (7 sets, daily range): BP systolic 126–154; BP diastolic 69–79; PULSE 79–95; RESP 16–20; TEMP 97.5–98.4; O2SAT 92–100
[2024-08-28 05:13] LABS: BASOPHILS % 0.4 % (0.0-1.0); EOSINOPHILS # (AUTO) 0.4 (0.0-0.4); EOSINOPHILS % 4.9 % (0.0-6.0); HEMATOCRIT 32.3 % (34.2-44.1); HEMOGLOBIN 10.5 g/dL (12.0-16.0); LYMPHOCYTES # (AUTO) 2.2 (1.0-3.2); LYMPHOCYTES % 29.7 % (18.0-39.1); MEAN CORPUSCULAR HEMOGLOBIN 28.8 pg (28-32); MEAN CORPUSCULAR HGB CONC 32.5 g/dL (31-35); MEAN CORPUSCULAR VOLUME 88.5 fL (81-99); MONOCYTES # (AUTO) 0.8 (0.2-0.8); MONOCYTES % 11.3 % (4.4-11.3); NEUTROPHILS % 53.3 % (38.7-80.0); PLATELET COUNT 219 x10e3/uL (140-360); RED BLOOD COUNT 3.65 x10e6/uL (3.6-5.1); RED CELL DISTRIBUTION WIDTH 16.7 % (11.7-14.4); WHITE BLOOD COUNT 7.41 x10e3/uL (4.8-10.8)
[2024-08-28 05:34] LABS: ANION GAP 11.1 mmol/L (8-16); CALCIUM 9.6 mg/dL (8.4-10.2); CREATININE, SERUM 0.85 mg/dL (0.57-1.11); POTASSIUM 4.1 mmol/L (3.5-5.1)
== END 2024-08-28 21:00 | DRG 948 ==
LOC: ER 13:04 → ERHOLD 15:32 → MED/SURG2 18:28
PROVIDERS: ADMIT Internal Medicine; ATTEND Internal Medicine
DX: G89.18 Other acute postprocedural pain (principal); R06.02 Shortness of breath; E11.9 Type 2 diabetes mellitus without complications; I10 Essential (primary) hypertension; I25.10 Atherosclerotic heart disease of native coronary artery without angina pectoris; K21.9 Gastro-esophageal reflux disease without esophagitis; D64.9 Anemia, unspecified; Z79.84 Long term (current) use of oral hypoglycemic drugs; I25.2 Old myocardial infarction; Z86.73 Personal history of transient ischemic attack (TIA), and cerebral infarction without residual deficits; Z95.1 Presence of aortocoronary bypass graft; Z96.653 Presence of artificial knee joint, bilateral; Z90.49 Acquired absence of other specified parts of digestive tract
CPT/HCPCS: 36415; 71045; 71260; 80048; 80053; 81001; 82948; 83605; 84484; 85025; 87040; 87086; 93005; 93970; 96372; 99252; 99285; J0692; J1650; J2543; J3410; J7030; J7050; Q9967